=== PATIENT | male | born 1985 | race Two or more races ===

== ENCOUNTER 2020-01-26 11:15 | Emergency (ER) | payer OTHER ==
[~2020-01-26] VITALS: Ht 175.3 cm; Wt 95.3 kg
--- NOTE | 2020-01-26 11:20 | NUR ---
pt bibra c/o NECK AND headache and left 5th digit laceration s/p fell off the owning. pt c/o pain 12/17. vs checked. cervical collar on, kept in place. pt seen by dr. vasquez.
[2020-01-26] MEDS ORDERED: MORPHINE SULFATE INJ 4 MG/ML DISP.SYRIN ONE (11:38)
[2020-01-26] MEDS ORDERED: ONDANSETRON HCL/PF 4 MG/2 ML VIAL ONE (11:38)
[2020-01-26] MEDS ORDERED: MORPHINE SULFATE INJ 2 MG/ML DISP.SYRIN IV ONE (12:00)
[2020-01-26] MEDS ORDERED: ONDANSETRON HCL/PF 4 MG/2 ML VIAL IVP ONE (12:00)
--- NOTE | 2020-01-26 12:20 | NUR ---
CALLED ORTHO DR. OCHOA PER EM [phone].
[2020-01-26] MEDS ORDERED: HYDROMORPHONE 1 MG/1 ML DISP.SYRIN ONE ×2 (12:29→14:14)
[2020-01-26] MEDS ORDERED: HYDROMORPHONE INJ 2 MG/ML DISP.SYRIN IV ONE (12:30)
[2020-01-26] MEDS ORDERED: CEFAZOLIN 1 GM in IV D5W 50 ML IV ONE (12:30)
--- NOTE | 2020-01-26 12:30 | NUR ---
TEXTED DR. BOYD
[2020-01-26] MEDS ORDERED: HYDROMORPHONE 1 MG/1 ML DISP.SYRIN IV ONE (14:30)
--- NOTE | 2020-01-26 14:33 | NUR ---
pt out for mri
[2020-01-26 17:33] VITALS: BP 132/74
--- NOTE | 2020-01-26 17:33 | NUR ---
Patient discharged to home in stable condition. Written and verbal after care instructions given. Patient verbalizes understanding of instruction. IV removed. Catheter intact and site benign. Pressure and 4x4 applied to site. No bleeding noted.
== END 2020-01-26 17:40 | disposition home or self-care (01) ==
LOC: ER 11:18
DX: S12.590A Other displaced fracture of sixth cervical vertebra, initial encounter for closed fracture (principal); S12.690A Other displaced fracture of seventh cervical vertebra, initial encounter for closed fracture; S12.490A Other displaced fracture of fifth cervical vertebra, initial encounter for closed fracture; S62.637A Displaced fracture of distal phalanx of left little finger, initial encounter for closed fracture; S09.8XXA Other specified injuries of head, initial encounter; W18.09XA Striking against other object with subsequent fall, initial encounter; Y93.89 Activity, other specified; Y92.89 Other specified places as the place of occurrence of the external cause; Y99.8 Other external cause status
CPT/HCPCS: 70450; 71045; 72125; 72128; 72141; 73130; 96365; 96375; 96376; 99285; A4217; J0690; J1170 ×2; J2270; J2405; J7060

== ENCOUNTER 2020-07-27 13:53 | Emergency (ER) | payer OTHER ==
[~2020-07-27] VITALS: Ht 175.3 cm; Wt 105.2 kg
--- NOTE | 2020-07-27 13:53 | NUR ---
PT BIB SELF C/O L SIDED BACK PAIN AND SOB FOR 3 DAYS. PT IS AAOX4, NOT IN RESPIRATORY DISTRESS, V/S STABLE, KEPT RESTED AND COMFORTABLE. WILL CONTINUE TO MONITOR.
--- NOTE | 2020-07-27 14:25 | NUR ---
AT BEDSIDE FOR EVAL.
--- NOTE | 2020-07-27 14:44 | NUR ---
ER PHLEB AT BEDSIDE FOR BLOOD DRAW.
[2020-07-27 14:51] LABS: BASOPHILS # (AUTO) 0.1 /CMM (0.0-0.2); BASOPHILS % (AUTO) 0.5 % (0.0-2.0); EOSINOPHILS % (AUTO) 2.3 % (0.0-6.0); HEMATOCRIT 41 % (39-51); HEMOGLOBIN 13.6 g/dL (13.5-17.5); LYMPHOCYTES # (AUTO) 1.3 /CMM (0.8-4.8); MEAN CORPUSCULAR HGB CONC 33 g/dl (31.0-36.0); MEAN CORPUSCULAR VOLUME 87 fL (80-96); MONOCYTES # (AUTO) 0.7 /CMM (0.1-1.30); MONOCYTES % (AUTO) 6.8 % (2.0-12.0); NEUTROPHILS # (AUTO) 8.4 /CMM (1.8-8.9); NEUTROPHILS % (AUTO) 78.4 % (43.0-81.0); PLATELET COUNT (AUTO) 155 /CMM (150-450); RED BLOOD CELL COUNT(AUTO) 4.73 MIL/uL (4.5-6.0); WHITE BLOOD COUNT (AUTO) 10.7 K/uL (4.3-11.0)
[2020-07-27 15:00] LABS: CARBON DIOXIDE 25 mmol/L (21-32); CHLORIDE 104 mmol/L (98-107); CREATININE 1.1 mg/dL (0.6-1.3); GLUCOSE 104 mg/dL (74-106); POTASSIUM 3.9 mmol/L (3.5-5.1); SODIUM SERUM 140 mmol/L (136-145); UREA NITROGEN, BLOOD 9 mg/dL (7-18)
[2020-07-27 15:05] LABS: ALANINE AMINOTRANSFERASE 81 U/L (12-78); ALBUMIN 3.3 g/dL (3.4-5.0); ALKALINE PHOSPHATASE 113 U/L (46-116); ASPARTATE AMINOTRANSFERASE 49 U/L (15-37); BILIRUBIN,DIRECT 0.2 mg/dL (0.0-0.2); BILIRUBIN,TOTAL 0.4 mg/dL (0.2-1.0); LIPASE 206 U/L (73-393); TOTAL PROTEIN, SERUM 7.5 g/dL (6.4-8.2)
[2020-07-27] MEDS ORDERED: CAPS42.514 TP (15:13)
[2020-07-27] MEDS ORDERED: META800T85 PO (15:13)
--- NOTE | 2020-07-27 15:32 | NUR ---
Patient discharged to home in stable condition. Written and verbal after care instructions given. Patient verbalizes understanding of instruction.
[2020-07-27 15:33] VITALS: BP 128/83
== END 2020-07-27 15:33 | disposition home or self-care (01) ==
LOC: ER 14:01
DX: K62.5 Hemorrhage of anus and rectum (principal); M54.6 Pain in thoracic spine; Z79.899 Other long term (current) drug therapy
CPT/HCPCS: 36415; 71045-TC; 80048-TC; 80076-TC; 83690-TC; 84484-TC; 85025-TC; 85730-TC; 86140-TC